=== PATIENT | female | born 1935 | race Caucasian/White ===

== ENCOUNTER 2020-05-09 19:12 | Inpatient (IN) | payer OTHER ==
[~2020-05-09] VITALS: Ht 152.4 cm; Wt 49.0 kg
--- NOTE | ~2020-05-09 | EMS ---
[address] [address] EMS Patient Care Report Name: SHERYL GEORGE URI Room #: 357-P ADM IN M.R.#: [id number] Admission: 05/09/20 Attend Phys: Jaime Hernandez MD Discharge: Date of : 31 Report #: [id number] THIS REPORT FOR: //name// Report Transmitted: 05/11/2020 04:46 EMS Care Summary [facility] MED-ACT Incident [id number] @ 05/09/2020 18:39 Incident Location [address] [place] [address] Patient SHERYL GEORGE Female, 85 Years 1935 Patient Address [address] [place] [address] Patient History Chronic Obstructive Pulmonary Disease (COPD),Hypertension (HTN),Hyperlipidemia,Lung Cancer,Anemia, Patient Allergies Penicillin allergy,Sulfa,Other drug allergy,Amoxicillin, Patient Medications Oxygen, Ferrous Sulfate, Melatonin, Amlodipine, Symbicort, Potassium, Lexapro, Atorvastatin, Vitamin B12, Nitroglycerin, Oscal 500, Lidocaine, Chief Complaint N/V/D W/FEVER PER STAFF Disposition Transported No Lights/[place] Reason Sick Person Transported To [facility] Narrative M1134 IS DISPATCHED AND RESPONDS NOTED. [facility] [address] [place] [address] EMS Patient Care Report Name: SHERYL GEORGE Room #: 357-P ADM IN Sariah#: [id number] Admission: 05/09/20 Attend Phys: Jaime Hernandez MD Discharge: Date of : 31 Report #: [id number] UPON ARRIVAL AT SCENE M1134 MAKES CONTACT WITH [facility] WHO STATES STATE ADVISED PT HAS N/V/D AND SLIGHT FEVER AND REQUEST HER BE TAKEN TO [facility] ER. UPON PT CONTACT, PT IS CONSCIOUS, TRACKING, SHOWING NO SIGNS OF DISTRESS OR OBVIOUS TRAUMA. PT DENIES ALL COMPLAINTS. PT MOVED TO COT, SECURED WITH ALL STRAPS, MOVED TO AMBULANCE WITHOUT INCIDENT. PT MONITORED ENROUTE. RADIO REPORT CALLED ENROUTE. UPON ARRIVAL AT [facility] ER, PT MOVED TO ER ROOM 7, PLACED IN BED WITH RAILS UP. PT CARE TRANSFERRED TO FRAME AND SCRAP CRUSHER WITH VERBAL REPORT. Initial Vitals @PTAP: 110,R: 18,BP: 105/58,Pain: 0/10,GCS: 14,SpO2: 96,Revised Trauma: 12, @19:05P: 106,R: 18,BP: 118/67,Pain: 0/10,GCS: 14,SpO2: 97,Revised Trauma: 12, @18:54P: 99,R: 18,BP: 120/72,Pain: 0/10,GCS: 14,Temp: 99F,SpO2: 99,Revised Trauma: 12, Assessments @18:49MENTAL:Confused,Person Oriented,SKIN:HEENT:Eyes: Left Pupil: 4-mm,Eyes: Right Pupil: 4-mm,LUNG SOUNDS:ABDOMEN:PELVIS//GI:EXTREMITIES:Capillary Refill: Right Upper: < 2 Sec,Capillary Refill: Left Upper: < 2 Sec,PULSE:Radial: 2+ Normal,NEURO: Impression Vomiting Procedures @PTAOxygen FlowRate: 3 Device: Nasal Cannula (NC) Response: UnchangedSucceeded@18:49ALS AssessmentResponse: UnchangedSucceeded Timeline STONE CIRCULAR SAWYER,Oxygen FlowRate: 3 Device: Nasal Cannula (NC) Response: UnchangedSucceeded, STONE CIRCULAR SAWYER,BP: 105/58 M,PULSE: 110,RR: 18 R,SPO2: 96 Ox,ETCO2: ,BG: ,PAIN: 0,GCS: 14, 18:12,Call Received 18:12,Psap Call 18:39,Dispatched 18:41,En Route 18:47,On Scene 18:49,At Patient 18:49,ALS Assessment,Response: UnchangedSucceeded, 18:53,Depart Scene 18:54,BP: 120/72 M,PULSE: 99,RR: 18 R,SPO2: 99 Ox,ETCO2: ,BG: ,PAIN: 0,GCS: 14, 19:05,BP: 118/67 M,PULSE: 106,RR: 18 R,SPO2: 97 Ox,ETCO2: ,BG: ,PAIN: 0,GCS: 14, [address] [address] EMS Patient Care Report Name: SHERYL GEORGE URI Room #: 357-P ADM IN M.R.#: [id number] Admission: 05/09/20 Attend Phys: Jaime Hernandez MD Discharge: Date of : 31 Report #: [id number] 19:08,At Destination 19:12,Transfer Patient 19:20,Call Closed Disclaimer v1.1 Copyright 2020 [employer] This EMS Care Summary contains data elements from the applicable legal record (which may be displayed differently). It is designed to provide pertinent information for the following purposes: continuity of care, clinical quality, and state data reporting. The complete legal record is available to ED staff and administrators of the receiving hospital in [employer]'s Patient Tracker. All data is provided "as is."
[~2020-05-09 19:12] MED LIST: ALBUTEROL2.5 MG/0.1; ASPIRIN EC81 M1 PO; COMBIVENT; LEVAQUIN 500 M500 MG PO; LEXAPRO 10 MG T10 M2 PO; PREDNISONE50 MG PO; SYMBICORT160 MCG/4.; VALIUM5 MG PO
[2020-05-09 19:13] VITALS: BP 122/65
--- NOTE | 2020-05-09 19:15 | NUR ---
SON'S NUMBER: [facility] [phone]
[2020-05-09 19:42] LABS: HEMATOCRIT 27.8 % (37.0-47.0); HEMOGLOBIN 9.1 gm/dL (12.0-15.0); MCH 30.1 pg (26.0-34.0); MCHC 32.9 g/dL (28.0-37.0); MCV 91.6 fL (80.0-100.0); PLATELET COUNT 328 thou/uL (150-400); RBC 3.03 mil/uL (4.20-5.00); RDW 16.2 % (10.5-14.5); WBC 28.9 thou/uL (4.0-11.0)
[2020-05-09 19:50] LABS: ANION GAP 5 mmol/L (7-16); BUN 16 mg/dL (7-18); CHLORIDE 94 mmol/L (98-107); CO2 31 mmol/L (21-32); CREATININE 0.9 mg/dL (0.6-1.0); GLUCOSE 128 mg/dL (74-106); POTASSIUM 4.3 mmol/L (3.5-5.1); SODIUM 130 mmol/L (136-145)
--- NOTE | 2020-05-09 19:56 | NUR ---
SPOKE WITH DIRECTOR OF FACILITY, HUMBERTO AVITIA
[2020-05-09 20:01] LABS: ALBUMIN 2.9 g/dL (3.4-5.0); LIPASE 38 U/L (73-393); SGOT 18 U/L (15-37); SGPT 13 U/L (30-65); TOTAL BILIRUBIN 0.5 mg/dL (0.2-1.0); TOTAL PROTEIN 6.9 g/dL (6.4-8.2); TROPONIN-I <0.06 ng/mL (<0.06)
[2020-05-09 20:44] LABS: URINE BILIRUBIN NEGATIVE (Negative); URINE BLOOD NEGATIVE (Negative); URINE CLARITY CLEAR; URINE COLOR YELLOW; URINE GLUCOSE-RANDOM* NEGATIVE (Negative); URINE KETONES NEGATIVE (Negative); URINE NITRITE-REFLEX NEGATIVE (Negative); URINE PROTEIN (DIPSTICK) NEGATIVE (Negative); URINE UROBILINOGEN 0.2 E.U./dl (0.2-1.0)
[2020-05-09 20:45] LABS: URINE LEUKOCYTES-REFLEX 2+ (Negative)
[2020-05-09 20:49] LABS: ABSOLUTE NEUTROPHILS 24.9 thou/uL (1.4-8.2); ANISOCYTOSIS 1+
[2020-05-09 20:53] LABS: BACTERIA-REFLEX 1-9 Few /HPF (None Seen); CASTS None Seen /LPF (None Seen); CRYSTALS None Seen /LPF (None Seen); MUCUS 0-3 Light strn/LPF (None Seen); SQUAMOUS 0-3 Few /LPF (0-3); URINE RBC 0-2 Rare /HPF (0-2); URINE WBC-REFLEX 6-15 Few /HPF (0-5)
[2020-05-09 21:12] VITALS: BP 122/65
--- NOTE | 2020-05-09 21:17 | NUR ---
UPDATED SON ON PATIENT CONDITION. SON NEEDS TO BE NOTIFIED OF PT COVID TEST RESULTS BECAUSE HIS WAS SENT HOME FROM WORK D/T PT COMING TO THE HOSPITAL. PT [id number] WILL NOT BE ABLE TO RETURN TO WORK UNTIL THE PT COVID TEST COMES BACK NEGATIVE
--- NOTE | 2020-05-10 02:58 | NUR ---
RECIEVED FROM ED VIA GURNEY , ALERT TO SELF AND SITUATION , BUT UNABLE TO RECALL INFORMATION FOR DATA BASE, ASSESSMENT COMPLETED, SON CALLED TO COMPLETE ADMISSION PROCESS. IV FLUIDS STARTED , GERONIMO WITH CLEAR YELLOW URINE. BED ALARM ON FOR SAFETY. DISCUSSED PLASN OF CARE SON AND PT BOTH VERBALIZED UNDERSTANDING.
[2020-05-10 05:38] VITALS: BP 102/50
[2020-05-10 06:17] LABS: HEMATOCRIT 22.3 % (37.0-47.0); HEMOGLOBIN 7.3 gm/dL (12.0-15.0); MCH 30.3 pg (26.0-34.0); MCHC 32.8 g/dL (28.0-37.0); MCV 92.4 fL (80.0-100.0); RBC 2.42 mil/uL (4.20-5.00); RDW 16.2 % (10.5-14.5)
[2020-05-10 06:24] LABS: CREATININE 0.7 mg/dL (0.6-1.0); MAGNESIUM 1.9 mg/dL (1.8-2.4); POTASSIUM 3.6 mmol/L (3.5-5.1)
[2020-05-10 07:16] VITALS: BP 119/54
--- NOTE | 2020-05-10 07:44 | EKG ---
[facility] [place] [address] ELECTROCARDIOGRAM REPORT Name: SHERYL GEORGE URI Room #: 357-P ADM IN M.R.#: [id number] Admission: 05/09/20 Attend Phys: Jaime Hernandez MD Discharge: Date of : 31 Report #: [id number] THIS REPORT FOR: cc: Jamey Cote MD, Harry MD Lundgren,Zach Merrill MD [facility] ~ THIS REPORT FOR: //name// [facility] ED Test Date: 2020-05-09 Test Time: 19:34:07 Pat Name: SHERYL GEORGE Department: Room: 357 Gender: F Community Relations Rep: MARIZA : 1935 Requested By: Ezekiel Tyson Order Number: [id number] MD: Zach Wu Measurements Intervals [place] Rate: 87 P: -83 MO: 118 QRS: -25 QRSD: 84 T: 15 QT: 387 QTc: 466 Interpretive Statements Sinus or ectopic atrial rhythm Inferior infarct, old Compared to ECG 10/26/2013 13:34:39 Ectopic atrial rhythm now present Electronically Signed On 05-10-2020 7:43:50 CDT by Zach Wu [email or web address] <ELECTRONICALLY SIGNED> By: Zach Wu MD, [facility] 05/10/20 0743 33 33 Zach Wu MD, [facility] /EPI
--- NOTE | 2020-05-10 16:10 | NUR ---
INITIAL ASSESSMENT: Received consult. JANESSA reviewed chart and spoke with nursing. Pt was admitted from [facility] [place] due to colitis. Pt placed in Enhanced Isolation to r/o COVID-19. Test is pending at this time. Pt is on IV steroids. Pt with hx of dementia. Per chart, pt is normally on O2 at the facility. JANESSA left voice message for pt's son Ector, ([phone]) to obtain info for assessment. JANESSA called [facility] and left message for pt's nurse at the facility to ask about pt's prior level of functioning. Awaiting calls back at this time. JANESSA is following to assist as needed with discharge planning.
--- NOTE | 2020-05-10 18:28 | NUR ---
PATIENT NOW SLEEPING AND REPIRATIONS ARE NON LABORED. PLEASANT WITH CARES. DOES NOT SEEM TO BE IN PAIN. SHE STATED SHE WANTS TO GO HOME. FIRST COVID NEGATIVE BUT WILL WAITH FOR DR YU TO SEE. RECORDS FROM [facility] IN CHART. SONNY CONT WITH PLAN OF CARE.
[2020-05-10 19:35] VITALS: BP 110/56
[2020-05-11 05:30] VITALS: BP 106/59
[2020-05-11 05:58] LABS: HEMATOCRIT 22.1 % (37.0-47.0); HEMOGLOBIN 7.3 gm/dL (12.0-15.0); MCH 30.5 pg (26.0-34.0); MCHC 32.9 g/dL (28.0-37.0); MCV 92.5 fL (80.0-100.0); RBC 2.39 mil/uL (4.20-5.00); RDW 16.1 % (10.5-14.5)
[2020-05-11 06:06] LABS: CALCIUM 7.9 mg/dL (8.5-10.1); CREATININE 0.8 mg/dL (0.6-1.0); MAGNESIUM 1.9 mg/dL (1.8-2.4); POTASSIUM 3.5 mmol/L (3.5-5.1)
[2020-05-11 08:28] VITALS: BP 158/64
--- NOTE | 2020-05-11 10:55 | NUR ---
JANESSA reviewed chart and spoke with nursing and attending physician. Pt remains in Enhanced Isolation to r/o COVID-19. Pt's first test was negative. Repeat test is pending. Pt also being tested for c.diff. SW received voice message from pt's son, Ector. SW returned call and left voice message. JANESSA spoke with Katya at [facility] to provide update and determine pt's prior level of functioning. Pt was able to ambulate with a rollator walker and do her ADLs with cueing. Pt is normally on 3L of continuous O2. PT/OT ordered to evaluate pt when she is able to participate with therapy. SW to fax clinical info to [facility] when second COVID results are available. JANESSA is following to assist as needed with disharge planning.
[2020-05-11 13:34] LABS: % SATURATION 30 % (20-39); IRON 45 ug/dL (50-170); TIBC 148 ug/dL (250-450)
[2020-05-11 15:35] VITALS: BP 120/51
--- NOTE | 2020-05-11 19:54 | NUR ---
PATIENT HAS RESTED IN ROOM THROUGH THE DAY. SECOND COVID WAS NEGATIVE. PER ID NURSE PATIENT CAN MOVE OUT OF ISOLATION. GERONIMO INTACT, IV INTACT. WILL CON [facility] PLAN OF CARE.
[2020-05-11 20:10] VITALS: BP 128/57
[2020-05-12 03:55] VITALS: BP 144/58
--- NOTE | 2020-05-12 06:34 | NUR ---
Pt. slept some. Maintaining O2 sat in the upper 90's on 2.5L/NC. No respiratory distress. Afebrile. Bed alarm on and SCD's on. Son called to get an update on pt. last night. Pt. making progress towards care plan goals.
[2020-05-12 07:39] VITALS: BP 137/61
--- NOTE | 2020-05-12 10:35 | NUR ---
JANESSA reviewed chart and spoke with nursing and attending physician. Pt has had two negative COVID tests. Order for Enhanced Isolation precautions to be discontinued. Therapy ordered to evaluate pt. PT evaluated pt earlier today and states pt is SBA. Pt able to return to her [place]. JANESSA spoke with MARY Qureshi at [facility], to notify of pt's possible discharge back today. Kiera states that pt can receive therapy at there facility if they have an order. JANESSA faxed additional clinical info for review. The facility is not able to provide transportation. SW to arrange w/c van with O2 when discharged. SW is following to assist as needed with discharge planning.
[2020-05-12] MEDS ORDERED: PROTONIX 20 MG20 MG PO (11:36)
[2020-05-12] MEDS ORDERED: CIPRO500 M1 PO (11:36)
[2020-05-12] MEDS ORDERED: FLAGYL500 M1 PO (11:36)
[2020-05-12] MEDS ORDERED: PREDNISONE 10 M10 M1 PO (11:43)
[2020-05-12 12:25] LABS: HEMOGLOBIN 8.1 gm/dL (12.0-15.0); MCHC 32.4 g/dL (28.0-37.0); MCV 92.6 fL (80.0-100.0); RBC 2.71 mil/uL (4.20-5.00); RDW 16.8 % (10.5-14.5); WBC 12.4 thou/uL (4.0-11.0)
[2020-05-12 13:57] VITALS: BP 137/61
--- NOTE | 2020-05-12 16:03 | NUR ---
DISCHARGE NOTE: Discharge orders finalized. JANESSA arranged w/c van transportation through [employer] for [phone]. Director of Case Mgmt authorized. JANESSA faxed discharge orders/summary to [facility] and spoke with MARY Qureshi, to notify of discharge. [facility]iera confirmed they are able to accept pt back today. JANESSA spoke with pt's son, Ector, via phone to provide update and notify of discharge. Ector is aware and in agreement with plan. Chart copy requested. No additional SW needs identified at this time, but is available to assist should needs arise.
--- NOTE | 2020-05-13 09:10 | NUR ---
RECEIVED ORDER FOR OT EVALUATION. PATIENT DISCHARGED HOME PRIOR TO OT EVALUATION WAS INITIATED.
== END 2020-05-12 15:57 | DRG 871 ==
LOC: ER 19:12 → EROBS 20:51 → 3W 20:51
PROVIDERS: Emergency Medicine; Nurse Practitioner; Nurse Practitioner Family; ADMIT Internal Medicine; ATTEND Internal Medicine
DX: A41.9 Sepsis, unspecified organism (principal); J96.21 Acute and chronic respiratory failure with hypoxia; G92 Toxic encephalopathy; K55.1 Chronic vascular disorders of intestine; A09 Infectious gastroenteritis and colitis, unspecified; E87.1 Hypo-osmolality and hyponatremia; N39.0 Urinary tract infection, site not specified; F03.90 Unspecified dementia, unspecified severity, without behavioral disturbance, psychotic disturbance, mood disturbance, and anxiety; E78.5 Hyperlipidemia, unspecified; D63.8 Anemia in other chronic diseases classified elsewhere; J44.9 Chronic obstructive pulmonary disease, unspecified; J45.909 Unspecified asthma, uncomplicated; Z90.710 Acquired absence of both cervix and uterus; Z90.49 Acquired absence of other specified parts of digestive tract; Z88.1 Allergy status to other antibiotic agents; Z88.8 Allergy status to other drugs, medicaments and biological substances; Z85.118 Personal history of other malignant neoplasm of bronchus and lung; Z86.010 Personal history of colon polyps; Z03.818 Encounter for observation for suspected exposure to other biological agents ruled out; Z92.3 Personal history of irradiation; Z79.82 Long term (current) use of aspirin; Z79.899 Other long term (current) drug therapy
CPT/HCPCS: 10080